=== PATIENT | female | born 1950 | race Caucasian/White ===

== ENCOUNTER 2021-05-26 19:03 | Outpatient (REF) | payer MEDICARE, SELFPAY ==
[2021-05-26 21:46] LABS: Magnesium 2.1 mg/dL (1.8-2.4); TSH (W/Ref FT4) 3.33 uIU/mL (0.36-3.74)
[2021-05-27 03:42] LABS: Vitamin D 25 Total 44.5 ng/mL (30-100)
== END 2021-05-26 19:04 | disposition home or self-care (01) ==
LOC: NCHCN 19:03
PROVIDERS: PCP Nurse Practitioner Family; Visit Provider Nurse Practitioner Community Health
DX: I49.3 Ventricular premature depolarization (principal); R42 Dizziness and giddiness
CPT/HCPCS: 82306; 83735; 84443

== ENCOUNTER 2022-12-29 15:11 | Outpatient (REF) | payer MEDICARE, MEDICAID, SELFPAY ==
[2022-12-29 14:53] LABS: Calculated LDL 81 mg/dL (<100); Cholesterol 240 mg/dL (<200); Glucose 108 mg/dL (74-106); HDL Cholesterol 148 mg/dL (40-60); Triglyceride 57 mg/dL (<150)
== END 2022-12-29 15:12 | disposition home or self-care (01) ==
LOC: NCHCN 15:11
PROVIDERS: PCP Nurse Practitioner Family; Visit Provider Nurse Practitioner Family
DX: Z13.1 Encounter for screening for diabetes mellitus (principal); Z00.00 Encounter for general adult medical examination without abnormal findings; E55.9 Vitamin D deficiency, unspecified; Z13.220 Encounter for screening for lipoid disorders
CPT/HCPCS: 80061; 82306; 82947